=== PATIENT | female | born 1990 | race African-American/Black ===

== ENCOUNTER 2023-11-01 11:54 | Outpatient (CLI) | payer OTHER | END 2023-11-01 11:55 | disposition home or self-care (01) | LOC: CSHLAB 11:54 | PROVIDERS: ATTEND Obstetrics & Gynecology | DX: Z01.818 Encounter for other preprocedural examination (principal); N92.0 Excessive and frequent menstruation with regular cycle; D25.9 Leiomyoma of uterus, unspecified; R10.2 Pelvic and perineal pain | CPT/HCPCS: 93005; 93010 ==

== ENCOUNTER 2023-11-14 09:41 | Emergency (ER) | payer OTHER ==
[2023-11-14 10:34] LABS: Bilirubin Neg (Negative); Blood, Urine Negative (Negative); Clarity Clear (Clear); Glucose, Urine (Dipstick) Normal (Negative); Ketone, Urine Negative (Negative); Leukocyte Negative (Negative); Nitrite Negative (Negative); Protein, Urine (Dipstick) 15 mg/dl (Neg-Trace); Specific Gravity, Urine 1.015 (1.005-1.030); Urobilinogen Normal mg/dL (Less than 2)
[2023-11-14 10:42] LABS: Hematocrit 38.5 % (34.9-44.5); Hemoglobin 12.7 g/dL (12.0-15.5); Mean Corpuscular Hemoglobin 27.7 pg (27.0-33.0); Mean Corpuscular Volume 84.1 fl (81.6-98.3); Mean Platelet Volume 12.6 fl (7.4-10.4); Platelet Count 251 10x3/uL (150-450); RBC Distribution Width 14.8 % (11.5-14.5); Red Blood Cell (RBC) Count 4.58 10x6/uL (3.90-5.03)
[2023-11-14 10:52] LABS: ALT (SGPT) 22 U/L (8-55); AST (SGOT) 16 U/L (5-34); Albumin 4.2 g/dL (3.5-5.0); Alkaline Phosphatase 86 U/L (40-110); Anion Gap 15 mmol/L (10-20); BUN (Urea Nitrogen) 12 mg/dL (7.0-18.7); Bilirubin, Total 0.8 mg/dL (0.2-1.2); Calc. Creatinine Clearance 0 mL/min (70-130); Calcium 9.3 mg/dL (7.8-10.44); Carbon Dioxide 21 mmol/L (22-29); Chloride 104 mmol/L (98-107); Estimated GFR 86; Globulin 3.6 g/dL (2.4-3.5); Glucose 105 mg/dL (70-105); Protein, Total 7.8 g/dL (6.0-8.3); Sodium 136 mmol/L (136-145)
[2023-11-14 10:53] LABS: Bacteria/HPF Rare-Few HPF (None Seen); CAUTI Indications for Culture Dysuria,urgency,freq; RBC/HPF 0-3 HPF (0-3); WBC/HPF 0-3 HPF (0-3)
[2023-11-14 10:54] LABS: Urine Culture Reflex No No
[2023-11-14 11:02] LABS: Band 1 % (5-11); Lymphocytes 21 % (21-51); Monocytes 10 % (0-10); Neutrophil 65 % (42-75); Reactive Lymphocytes 3 % (0-10)
[2023-11-14 11:04] LABS: MDiff Complete? YES
[2023-11-14] MEDS ORDERED: HYDROcodone/Acetaminophen 5/325 mg Tablet ONE (11:05)
[2023-11-14 11:06] LABS: Anisocytosis SLIGHT = 6-15 cells (100X) (0-5/hpf); Giant Platelets SLIGHT HPF (0-5); Microcytosis SLIGHT = 6-15 cells (100X) (0-5/hpf); Platelet Adequacy Comment Appears Adequate
[2023-11-14 11:07] LABS: White Blood Cell (WBC) Count 18.3 10x3/uL (3.5-10.5)
[2023-11-14] MEDS ORDERED: Iopamidol 300 61% 100 ML VIAL FS ONE (12:41)
[2023-11-14] MEDS ORDERED: HYDROmorphone 0.5 MG/0.5 ML SYRINGE ONE (14:08)
[2023-11-14] MEDS ORDERED: Ondansetron PF 4 MG/2 ML Vial ONE (14:09)
== END 2023-11-14 14:10 | disposition home or self-care (01) ==
LOC: CSHERS 09:41
DX: G89.18 Other acute postprocedural pain (principal); R10.9 Unspecified abdominal pain; R10.30 Lower abdominal pain, unspecified; I10 Essential (primary) hypertension; E78.00 Pure hypercholesterolemia, unspecified; Z79.899 Other long term (current) drug therapy
CPT/HCPCS: 74177; 80053; 81001; 83605; 85025; 93005; 96374; 96375; J1170; J2405; Q9967